=== PATIENT | female | born 1945 | race African-American/Black ===

== ENCOUNTER 2018-05-26 09:30 | Emergency (ER) | payer OTHER ==
[~2018-05-26] VITALS: Ht 170.2 cm; Wt 129.0 kg
[~2018-05-26 09:30] MED LIST: ASPI-986 PO; ATOR20TA65 PO; CHOL500010 PO; LISI-604 PO; OCD PO
[2018-05-26] MEDS ORDERED: ATOR10TA PO (09:37)
[2018-05-26] MEDS ORDERED: ACETAMINOPHEN 325MG TABLET PO ONE (11:00)
[2018-05-26 11:44] LABS: BASOPHILS % 0.3 % (0.0-2.0); EOSINOPHILS % 0.2 % (0.0-5.0); HEMOGLOBIN. 12.4 g/dL (12.0-16.0); LYMPHOCYTES % 16.5 % (20.0-50.0); MEAN CORPUSCULAR HEMOGLOBIN 30.1 pg (28.0-32.0); MEAN PLATELET VOLUME 8.1 fl (7.4-10.4); MONOCYTES % 6.1 % (2.0-8.0); NEUTROPHILS % 76.9 % (40.0-76.0); PLATELET 226 x1000/uL (130-400); RED BLOOD CELL COUNT 4.13 mill/uL (4.2-5.4); RED CELL DISTRIBUTION WIDTH 14.1 % (11.6-14.6)
[2018-05-26 11:51] LABS: CHLORIDE 102 mEq/L (98-107)
[2018-05-26] MEDS ORDERED: LISINOPRIL 10MG TABLET PO ONE (12:00)
[2018-05-26 13:30] VITALS: BP 133/64
== END 2018-05-26 13:58 | disposition home or self-care (01) ==
LOC: ER 09:30
DX: S00.83XA Contusion of other part of head, initial encounter (principal); M54.5 Low back pain; M25.511 Pain in right shoulder; Y93.89 Activity, other specified; W01.190A Fall on same level from slipping, tripping and stumbling with subsequent striking against furniture, initial encounter; Y92.092 Bedroom in other non-institutional residence as the place of occurrence of the external cause; I10 Essential (primary) hypertension; E11.9 Type 2 diabetes mellitus without complications
CPT/HCPCS: 36415; 71045; 73030; 84484; 93005; 99284

== ENCOUNTER 2019-06-13 12:10 | Emergency (ER) | payer OTHER ==
[~2019-06-13] VITALS: Ht 172.7 cm; Wt 127.0 kg
[~2019-06-13 12:10] MED LIST changes: +ATOR10TA PO
[2019-06-13] MEDS ORDERED: SODIUM CHLORIDE 0.9% 1,000 ML IV ONE (12:44)
[2019-06-13 13:32] LABS: BASOPHILS % 0.6 % (0.0-2.0); EOSINOPHILS % 0.3 % (0.0-5.0); HEMATOCRIT. 40.2 % (36.0-48.0); HEMOGLOBIN. 13.2 g/dL (12.0-16.0); LYMPHOCYTES % 17.7 % (20.0-50.0); MEAN CORPUSCULAR HEMOGLOBIN 30.4 pg (28.0-32.0); MEAN CORPUSCULAR VOLUME 92.8 fL (81.0-99.0); MEAN PLATELET VOLUME 8.2 fl (7.4-10.4); MONOCYTES % 5.5 % (2.0-8.0); NEUTROPHILS % 75.9 % (40.0-76.0); PLATELET 254 x1000/uL (130-400); RED BLOOD CELL COUNT 4.33 mill/uL (4.2-5.4); RED CELL DISTRIBUTION WIDTH 14.2 % (11.6-14.6)
[2019-06-13 13:35] LABS: CHLORIDE 103 mEq/L (98-107)
[2019-06-13 15:50] LABS: CLARITY URINE CLEAR (CLEAR); COLOR URINE YELLOW (YELLOW); KETONES URINE NEGATIVE (NEGATIVE); LEUKOCYTE ESTERASE URINE 1+ (NEGATIVE); NITRITE URINE NEGATIVE (NEGATIVE); OCCULT BLOOD URINE NEGATIVE (NEGATIVE); PH URINE 6.5 (4.5-8.0); PROTEIN URINE NEGATIVE (NEGATIVE); SPECIFIC GRAVITY URINE 1.013 (1.005-1.030); UROBILINOGEN URINE 0.2 E.U./dL (0.2-1.0)
[2019-06-13] MEDS ORDERED: CEFTRIAXONE 1 G PREMIX 50 ML IV ONE (16:00)
[2019-06-13 17:11] VITALS: BP 141/64
== END 2019-06-13 18:35 | disposition short-term general hospital (02) ==
LOC: ER 13:11
DX: N39.0 Urinary tract infection, site not specified (principal); R53.1 Weakness; R00.2 Palpitations; R42 Dizziness and giddiness; E86.0 Dehydration; M79.605 Pain in left leg; M79.604 Pain in right leg; I11.0 Hypertensive heart disease with heart failure; I50.9 Heart failure, unspecified; E11.9 Type 2 diabetes mellitus without complications; I25.110 Atherosclerotic heart disease of native coronary artery with unstable angina pectoris; E78.00 Pure hypercholesterolemia, unspecified; R79.89 Other specified abnormal findings of blood chemistry; Z79.899 Other long term (current) drug therapy; Z90.710 Acquired absence of both cervix and uterus
CPT/HCPCS: 36415; 71045; 80053; 81003; 82962; 83880; 84484; 85025; 87086; 93005; 93970; 96361; 96365; 99285; J0696; J7030

== ENCOUNTER 2022-01-18 03:18 | Emergency (ER) | payer OTHER ==
[~2022-01-18] VITALS: Ht 170.2 cm; Wt 136.0 kg
[~2022-01-18 03:18] MED LIST changes: -LISI-604 PO; +LISI20TA31 PO
[2022-01-18 05:35] LABS: BASOPHILS % 0.7 % (0.0-2.0); EOSINOPHILS % 0.5 % (0.0-5.0); HEMATOCRIT. 38.4 % (36.0-48.0); HEMOGLOBIN. 12.6 g/dL (12.0-16.0); LYMPHOCYTES % 25.5 % (20.0-50.0); MEAN CORPUSCULAR HEMOGLOBIN 29.4 pg (28.0-32.0); MEAN CORPUSCULAR VOLUME 89.8 fL (81.0-99.0); MEAN PLATELET VOLUME 7.4 fl (7.4-10.4); MONOCYTES % 7.2 % (2.0-8.0); NEUTROPHILS % 66.1 % (40.0-76.0); PLATELET 247 x1000/uL (130-400); RED BLOOD CELL COUNT 4.28 mill/uL (4.2-5.4); RED CELL DISTRIBUTION WIDTH 15.9 % (11.6-14.6)
[2022-01-18 05:40] LABS: CHLORIDE 105 mEq/L (98-107)
[2022-01-18] MEDS ORDERED: ACETAMINOPHEN 325MG TABLET PO ONE (08:15)
[2022-01-18 11:09] VITALS: BP 150/70
== END 2022-01-18 11:16 | disposition short-term general hospital (02) ==
LOC: ER 03:18 → CANBEDREQ 01-19 07:17
DX: R55 Syncope and collapse (principal); M25.562 Pain in left knee; M25.561 Pain in right knee; I11.0 Hypertensive heart disease with heart failure; I50.9 Heart failure, unspecified; E78.00 Pure hypercholesterolemia, unspecified; E11.9 Type 2 diabetes mellitus without complications; Z20.822 Contact with and (suspected) exposure to COVID-19; W18.30XA Fall on same level, unspecified, initial encounter; Y93.89 Activity, other specified; Y92.89 Other specified places as the place of occurrence of the external cause; Y99.8 Other external cause status
CPT/HCPCS: 36415; 71045; 73560; 80053; 83880; 84484; 85025; 87426; 93005; 99285; C9803

== ENCOUNTER 2023-05-09 09:19 | Emergency (ER) | payer OTHER ==
[~2023-05-09] VITALS: Ht 167.6 cm; Wt 100.0 kg
[2023-05-09 09:20] VITALS: O2SAT 96
[2023-05-09 11:41] LABS: BASOPHILS % 0.4 % (0.0-2.0); EOSINOPHILS % 0.1 % (0.0-5.0); HEMATOCRIT. 36.2 % (36.0-48.0); HEMOGLOBIN. 11.4 g/dL (12.0-16.0); LYMPHOCYTES % 9.1 % (20.0-50.0); MEAN CORPUSCULAR HEMOGLOBIN 28.1 pg (28.0-32.0); MEAN CORPUSCULAR HGB CONC 31.4 g/dL (31.0-37.0); MEAN CORPUSCULAR VOLUME 89.5 fL (81.0-99.0); MEAN PLATELET VOLUME 8.1 fl (7.4-10.4); MONOCYTES % 12.5 % (2.0-8.0); NEUTROPHILS % 77.9 % (40.0-76.0); PLATELET 204 x1000/uL (130-400); RED BLOOD CELL COUNT 4.05 mill/uL (4.2-5.4); RED CELL DISTRIBUTION WIDTH 17.1 % (11.6-14.6); WHITE BLOOD COUNT 6.1 x1000/uL (4.5-11.0)
[2023-05-09 11:52] LABS: INR 1.5; PROTHROMBIN TIME 16.1 sec (9.6-11.0)
[2023-05-09 11:57] LABS: ALANINE AMINOTRANSFERASE 15 IU/L (10-49); ALBUMIN 3.4 g/dL (3.2-4.8); ASPARTATE AMINOTRANSFERASE 21 IU/L (<34); BILIRUBIN TOTAL 1.2 mg/dL (0.1-1.0); CARBON DIOXIDE 27 mEq/L (21-32); CHLORIDE 101 mEq/L (98-107); CREATININE 1.2 mg/dL (0.6-1.0); GLUCOSE 296 mg/dL (70-105); PROTEIN TOTAL 7.3 g/dL (6.0-8.3); SODIUM 135 mEq/L (136-145); TROPONIN I HIGH SENSITIVITY 10 ng/L (3.0-34); UREA NITROGEN BLOOD 15 mg/dL (9-23)
[2023-05-09] MEDS ORDERED: LEVOFLOXACIN 750MG PREMIX 150 ML IV STA (12:28)
[2023-05-09 14:21] LABS: CLARITY URINE TURBID (CLEAR); COLOR URINE YELLOW (YELLOW); GLUCOSE URINE NEGATIVE (NEGATIVE); KETONES URINE TRACE (NEGATIVE); LEUKOCYTE ESTERASE URINE 2+ (NEGATIVE); NITRITE URINE POSITIVE (NEGATIVE); OCCULT BLOOD URINE 2+ (NEGATIVE); PH URINE >=9.0 (4.5-8.0); PROTEIN URINE 1+ (NEGATIVE); SPECIFIC GRAVITY URINE 1.016 (1.005-1.030)
[2023-05-09 14:44] LABS: BACTERIA URINE 4+; SQUAMOUS EPITHELIAL CELL URINE FEW /lpf (RARE/1+); TRIPLE PHOSPHATE CRYSTAL URINE 2+ /lpf
[2023-05-09 14:46] LABS: RBC URINE NONE SEEN /hpf (0-2); WBC URINE NONE SEEN /hpf (0-2)
[2023-05-09] MEDS ORDERED: SODIUM CHLORIDE 0.9% 500 ML IV ONE (15:00)
[2023-05-09 15:33] LABS: TROPONIN I HIGH SENSITIVITY 11 ng/L (3.0-34)
[2023-05-09 17:36] VITALS: BP 141/70; PULSE 100; RESP 20; TEMP 98.2
== END 2023-05-09 17:34 | disposition short-term general hospital (02) ==
LOC: ER 09:23 → CANBEDREQ 16:00 → ER 17:34
DX: J18.9 Pneumonia, unspecified organism (principal); N39.0 Urinary tract infection, site not specified; I11.0 Hypertensive heart disease with heart failure; I50.9 Heart failure, unspecified; E11.9 Type 2 diabetes mellitus without complications; E78.00 Pure hypercholesterolemia, unspecified; I48.91 Unspecified atrial fibrillation; Z20.822 Contact with and (suspected) exposure to COVID-19
CPT/HCPCS: 99285; 96365; 71045; 96366; 96361; 87426; 80053; 81003; 82010; 82962; 83880; 85025; 85610; 84484; 87804 ×2; 36415; 93005; J1956

== ENCOUNTER 2023-07-20 21:46 | Emergency (ER) | payer OTHER ==
[~2023-07-20] VITALS: Ht 165.1 cm; Wt 132.0 kg
[2023-07-20 22:04] VITALS: O2SAT 97
[2023-07-21 01:37] LABS: BASOPHILS % 0.8 % (0.0-2.0); EOSINOPHILS % 0.1 % (0.0-5.0); HEMATOCRIT. 31.3 % (36.0-48.0); HEMOGLOBIN. 10.3 g/dL (12.0-16.0); LYMPHOCYTES % 8.7 % (20.0-50.0); MEAN CORPUSCULAR HEMOGLOBIN 28.4 pg (28.0-32.0); MEAN CORPUSCULAR HGB CONC 32.8 g/dL (31.0-37.0); MEAN CORPUSCULAR VOLUME 86.7 fL (81.0-99.0); MEAN PLATELET VOLUME 7.5 fl (7.4-10.4); MONOCYTES % 11.4 % (2.0-8.0); PLATELET 344 x1000/uL (130-400); RED BLOOD CELL COUNT 3.61 mill/uL (4.2-5.4); RED CELL DISTRIBUTION WIDTH 18.9 % (11.6-14.6); WHITE BLOOD COUNT 8.2 x1000/uL (4.5-11.0)
[2023-07-21] MEDS: METOPROLOL TARTRATE 5MG/5ML VIAL IV ONE (01:53)
[2023-07-21 02:00] LABS: ALANINE AMINOTRANSFERASE 11 IU/L (10-49); ALBUMIN 3.3 g/dL (3.2-4.8); ASPARTATE AMINOTRANSFERASE 22 IU/L (<34); BILIRUBIN TOTAL 0.7 mg/dL (0.1-1.0); CALCIUM 8.8 mg/dL (8.7-10.4); CARBON DIOXIDE 24 mEq/L (21-32); CHLORIDE 97 mEq/L (98-107); CREATININE 1.4 mg/dL (0.6-1.0); GLUCOSE 196 mg/dL (70-105); POTASSIUM 4.6 mEq/L (3.5-5.1); PROTEIN TOTAL 7.5 g/dL (6.0-8.3); SODIUM 129 mEq/L (136-145); TROPONIN I HIGH SENSITIVITY 15 ng/L (3.0-34); UREA NITROGEN BLOOD 23 mg/dL (9-23)
[2023-07-21 02:05] LABS: ETHANOL BLOOD < 10 mg/dL (<10)
[2023-07-21] MEDS: DILTIAZEM HCL 5MG/ML 5ML VIAL IV ONE ×2 (02:21→09:15)
[2023-07-21] MEDS: ACETAMINOPHEN 325MG TABLET PO ONE (03:58)
[2023-07-21] MEDS: DILTIAZEM HCL 120MG CAPSULE ER 24HR PO ONE (03:58)
[2023-07-21] MEDS ORDERED: DILT60TA35 MT (05:28)
[2023-07-21 10:40] VITALS: BP 128/71; PULSE 106; RESP 16; TEMP 97.8
== END 2023-07-21 10:58 | disposition home or self-care (01) ==
LOC: ER 21:46
DX: I48.91 Unspecified atrial fibrillation (principal); D64.9 Anemia, unspecified; M79.662 Pain in left lower leg; E11.9 Type 2 diabetes mellitus without complications; I10 Essential (primary) hypertension; Z98.890 Other specified postprocedural states; Z79.899 Other long term (current) drug therapy; Z20.822 Contact with and (suspected) exposure to COVID-19
CPT/HCPCS: 36415; 71045; 93005; 99285; 80053; 80320; 82962; 83880; 83605; 83690; 85025; 84484; 93971; 96374; 96376; 87426; J3490 ×2; G0480